=== PATIENT | male | born 1955 | race Caucasian/White ===

== ENCOUNTER 2018-04-25 00:43 | Emergency (ER) | payer SELFPAY ==
--- NOTE | 2018-04-25 03:36 | ED Physician Documentation ---
PD HPI ABD PAIN - Stated complaint Stated Complaint: CONSTIPATION - Chief complaint Chief Complaint: Abd Pain - History obtained from History obtained from: Patient - History of Present Illness Timing - onset: How many days ago (2) Timing - duration: Days (2) Timing - details: Gradual onset Quality: Cramping, Fullness/distended Location: All over / everywhere Recently seen: Not recently seen - Additional information Additional information: c/o constipation. no bm in 2 days, feels urge to defecate but unable to have BM. Denies h/o same. Review of Systems Constitutional: denies: Fever GI: reports: Abdominal Pain, Abdominal Swelling, Constipation. denies: Nausea, Vomiting, Diarrhea PD PAST MEDICAL HISTORY - Past Medical History Cardiovascular: None Respiratory: None Endocrine/Autoimmune: None GI: None : None HEENT: None Psych: None Musculoskeletal: None Derm: None - Past Surgical History Past Surgical History: No - Present Medications Home Medications: Ambulatory Orders Medication Instructions Recorded Confirmed No Known Home Medications [No 04/25/18 04/25/18 Known Home Medications] - Allergies Allergies/Adverse Reactions: Allergies Allergy/AdvReac Type Severity Reaction Status Date / Time No Known Drug Allergies Allergy Verified 04/25/18 01:00 - Social History Does the pt smoke?: No Smoking Status: Never smoker Does the pt drink ETOH?: No Does the pt have substance abuse?: No - Immunizations Immunizations are current?: Yes - POLST Patient has POLST: No PD ED PE NORMAL - Vitals Vital signs reviewed: Yes - General General: Alert and oriented X 3, No acute distress, Well developed/nourished - Abdomen Abdomen: Normal bowel sounds, Soft, Non tender, Non distended - Back Back: No CVA TTP - Derm Derm: Normal color, Warm and dry, No rash PD ED PE EXPANDED - Rectal Rectal: Normal Tone, Other (no stool in vault). No: Mass, Hemorrhoid Results - Vitals Vitals: Vital Signs - 24 hr 04/25/18 04:50 Heart Rate 62 Respiratory 18 Rate Blood Pressure 138/72 H O2 Saturation 98 Oxygen O2 Source Room air PD MEDICAL DECISION MAKING - ED course Complexity details: considered differential, d/w patient, d/w family ED course: no stool in vault on attempted disimpaction. At this time, the HPI and exam do not suggest an alternative diagnosis to constipation to the point of needing emergent testing or treatment; given magnesium citrate to take once he is home, and instructed to return if worse, and f/u with PMD if symptoms persist beyond next 24 hours - Sepsis Event Vital Signs: Vital Signs - 24 hr 04/25/18 04:50 Heart Rate 62 Respiratory 18 Rate Blood Pressure 138/72 H O2 Saturation 98 Oxygen O2 Source Room air Departure - Departure Disposition: 01 Home, Self Care Clinical Impression: Constipation Condition: Good Instructions: ED Constipation Comments: Drink half the bottle of the magnesium citrate provided (do this when you get home). If you do not have adequate results (large bowel movement with relief of urge to defecate) within 2 or 3 hours, drink the other half of the bottle. If this does not result in large bowel movement and resolution of your discomfort, you can also try Fleets enema, glycerin suppositories, Milk of Magnesia, colace , senna. Discharge Date/Time: 04/25/18 04:50
[2018-04-25] MEDS ORDERED: MAGNESIUM CITRATE 296 ML BOTTLE PO STA (04:38)
[2018-04-25 04:52] VITALS: BP 138/72
== END 2018-04-25 04:50 | disposition home or self-care (01) ==
LOC: ED 00:43
DX: K59.00 Constipation, unspecified (principal)
CPT/HCPCS: 99282; 99283; A9270

== ENCOUNTER 2025-07-27 08:48 | Observation (INO) ==
--- NOTE | 2025-07-27 08:44 | ED Physician Documentation ---
History of Present Illness Stated complaint Stated Complaint: STROKE Chief complaint Chief Complaint: Neuro History obtained from History obtained from: Patient, Family and EMS Additonal information Additional information: This is a reportedly otherwise healthy French-speaking gentleman who presents by ambulance for stroke symptoms. Sometime between 6 and 630 this morning he developed a left facial droop and slurred speech but no other deficits. He did not lose the ability to ambulate. He has no headache. No history of stroke. On no medications. He was hypertensive for EMS in the range of 199/90. Blood sugar prehospital was about 180. Meds/Allgy Home Medications Ambulatory Orders Medication Instructions Recorded Confirmed No Known Home Medications 04/25/1804/02 No Known Home Medications 07/27/2507/03 Allergies Allergies Allergy/AdvReac Type Severity Reaction Status Date / Time No Known Drug Allergies Allergy Unverified 07/27/25 08:45 PFSH Active Problems All Active Problems (Updated 07/27/25 @ 09:25 by José Miguel Barajas MD) Cerebrovascular accident (CVA) (Acute) Exam Exam Vital Signs: Vital Signs x48h Temp Pulse Resp BP Pulse Ox 07/27/25 09:11 36 C L 63 17 198/92 H 97 07/27/25 08:43 36.5 C 71 18 182/96 H 97 Constitutional normal general appearance and no apparent distress Eyes PERRL Respiratory breath sounds equal bilaterally, normal respiratory effort and clear to auscultation bilaterally Cardiovascular normal heart rate noted, regular rhythm noted and no murmur Gastrointestinal abdomen soft to palpation and nontender to palpation Results Vitals Vitals: Vital Signs - 24 hr 07/27/25 08:43 07/27/25 09:11 Temperature 36.5 C 36 C L Temperature Source Temporal Artery Scan Temporal Artery Scan Pulse Rate 71 63 Respiratory Rate 18 17 Blood Pressure 182/96 H 198/92 H O2 Saturation 97 97 O2 Source Room air Room air Pain Intensity 0 0 Oxygen O2 Source Room air EKG (time done) 0913: EKG releavant findings:: EKG personally interpreted by author of this note. Relevant findings are: Normal sinus rhythm with rate of 70, IVCD with LAD, LVH Labs Labs: Laboratory Tests 07/27/25 07/27/25 09:16 09:28 WBC 8.8 RBC 4.80 Hgb 14.0 Hct 41.0 L MCV 85.4 MCH 29.2 MCHC 34.1 RDW 12.9 Plt Count 185 MPV 10.2 Neut # (Auto) 6.3 Lymph # (Auto) 1.8 [place] # (Auto) 0.5 Eos # (Auto) 0.1 Baso # (Auto) 0.0 Absolute Nucleated RBC 0.00 Nucleated RBC % 0.0 Sodium 135 Potassium 3.9 Chloride 102 Carbon Dioxide 27 Anion Gap 6.0 BUN 12 Creatinine 0.8 Estimated GFR (MDRD) 96 Glucose 188 H POC Whole Bld Glucose 193 Calcium 9.0 Total Bilirubin 0.7 AST 15 ALT 16 Alkaline Phosphatase 90 Total Protein 7.4 Albumin 4.1 Globulin 3.3 Albumin/Globulin Ratio 1.2 Lipase 15 Rads (name of study) CT/CTA showing hypodensity in the right basal ganglia which could be a subacute stroke, otherwise negative: Relevant Findings:: Final report received and EMP independent interpretation of test (No ICH) PD Medical Decision Making ED course ED course: 70-year-old gentleman with strokelike symptoms seen briefly in the hallway on the way to CT. On my initial review of his noncontrast CT it looked normal to me around 9 AM and then I had further history and physical done with the aid of the [employer] interpreter. With that conversation patient said he actually started to develop numbness and tingling in the right leg at 1130 last night and then awoke with the other symptoms of dysarthria and left facial droop at 6 AM. Telestroke had been activated while he was in CT and we are awaiting their evaluation, but given the unclear time of onset and relatively mild symptomatology I suspect they will not recommend thrombolytics. Spoke with Dr. Medellin, telestroke neurologist at 9:15 AM. Given the unclear time of onset and sounding like he had symptoms last night he agrees that he does not recommend thrombolytics. Recommends admission for MRI and poststroke care. Dr. Medellin called me back after he reviewed the CT and the CT angiography. Recommends DAPT for 3 weeks and then aspirin only. Spoke with Dr. Okeefe for observation at 9:25 AM. Discharge Plan Discharge Patient Disposition: ED Place in Observation Condition: Stable Clinical Impression: Cerebrovascular accident (CVA) Qualifiers: CVA mechanism: unspecified Qualified Code(s): I63.9 - Cerebral infarction, unspecified Prescriptions: No Action No Known Home Medications No Known Home Medications Print Language: Romanian Stand Alone Forms: PCP List NIHSS Level of Consciousness Level of consciousness: (0) Alert, Keenly responsive LOC Questions: (0) Answers both Q's correct LOC Commands: (0) Performs both correctly Gaze Best Gaze: (0) Normal Visual Visual: (0) No loss Facial Palsy Facial Palsy: (1) Minor paralysis Motor Arms (both separate) Motor Arm (right): (0) No drift Motor Arm (left): (0) No drift Motor Legs (both separate) Motor Leg (right): (0) No drift Motor Leg (left): (0) No drift Limb Ataxia Limb Ataxia: (0) Absent Sensory Sensory: (0) Normal Best Language Best Language: (0) No aphasia Dysarthria Dysarthria: (1) Fwex-[id number] dysarthria Extinction and Inattention (formally neg Extinction and inattention: (0) No abnormality Total Score/Results Total Score/Result: 2
[2025-07-27 09:21] LABS: HCT - HEMATOCRIT 41.0 % (42.0-52.0); HGB - HEMOGLOBIN 14.0 g/dL (14.0-18.0); MEAN PLATELET VOLUME 10.2 fL (7.4-11.4); NRBC ABSOLUTE COUNT (AUTO) 0.00 x10^3/uL; NUCLEATED RED BLOOD CELLS AUTO 0.0 /100WBC; PLT - PLATELET COUNT 185 10^3/uL (130-450); RED CELL DISTRIBUTION WIDTH 12.9 % (12.0-15.0)
--- NOTE | 2025-07-27 09:35 | HISTORY & PHYSICAL EXAMINATION ---
Chief Complaint Chief Complaint Chief Complaint: Acute LUE numbness/tingling, facial droop, slurred speech History of Present Illness Admitted From Admitted From:: Home, arrived through EMS History Obtained From History obtained from: Patient, Son History of Present Illness HPI Comment/Other: Cuong Ramachandran is a 70-year-old male with a PMH of prediabetes who presents with acute numbness and tingling in the LUE, facial droop, and slurred speech found to have subacute infarction in the right thalamus, right basal ganglia, and right centrum semiovale. History is obtained from the patient, who requests that his son, Dillon, provides translation for Belarusian. Mr. Ramachandran's symptom onset began approximately 2300 on 07/26 when he was preparing to go to bed. He describes a cramping, tight sensation in the right lower extremity with gradual onset over 15 minutes. He went to bed and this sensation was gone by the time he woke up at 0630 the following morning 07/27. Shortly after, he went to the bathroom to shave, and noticed an absent sensation/numbness in his left lower face. He went to consult his who noticed he may have a facial droop, and notified their son who lives with them who quickly called EMS. Mr. Ramachandran also describes slurred speech which he noticed when speaking to his , and also reported by his and son. Currently, he states he feels "normal" and back to his baseline aside from continued mild dysarthria. He denies numbness, tingling, vision abnormalities, confusion, or word finding. He states he has never experienced such an episode before and is feeling quite anxious. His last annual physical was in 2023, he reports visiting [facility] in [place]. He also underwent cataract surgery a few weeks ago. He recalls being told he is prediabetic before. Otherwise, he is unaware of any prior medical history. Meds/Allgy Home Medications Ambulatory Orders Medication Instructions Recorded Confirmed No Known Home Medications 04/25/1804/02 No Known Home Medications 07/27/2507/03 Allergies Allergies Allergy/AdvReac Type Severity Reaction Status Date / Time No Known Drug Allergies Allergy Unverified 07/27/25 08:45 [facility] Active Problems All Active Problems (Updated 07/27/25 @ 14:29 by Reny Bucio) Swallowing difficulty (Acute) Hypertension (Chronic) ECG abnormality (Acute) Neurologic abnormality (Acute) Cerebrovascular accident (CVA) (Acute) Medical History Medical History (Updated 07/27/25 @ 14:29 by Reny Bucio) Prediabetes Social History Social History (Updated 07/27/25 @ 13:13 by Reny Bucio) Smoking Status: Former smoker If you are a former smoker, when did you quit? (Date/Year): Over 40 years ago, smoked for a few years as a teenager Number of Years Smoked: 5 How many cigarettes a day do you smoke? (20 cigarettes=1 Pk): 10 Second hand tobacco smoke exposure: No Do you dip or chew tobacco?: No Do you vape?: No Patient requests smoking cessation consult: No Initiate information on smoking cessation: No Living arrangement: At home Marital Status: Living Condition: With spouse/s.o. and With family Support Person: Yes Relationship Notes: Lives with and two sons. Living Situation Details: Lives in a [facility] with approximately 5-6 steps to get into the home. 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 He denies numbness, tingling, vision abnormalities, confusion, or word finding. He states he has never experienced such an episode before and is feeling quite anxious. Constitutional Reports: Fatigue (States at time he doesn't feel well-rested after sleeping); Denies: Fever, Chills, Weakness, Diaphoresis, Night sweats, Changes in appetite or eating habits, Poor appetite, Weight gain or Weight loss Eyes Reports: Other (Cataract surgery 3 weeks ago); Denies: Blurry vision, Field loss, Vision loss, Change in vision, Diplopia or Blind spots Ears, nose, mouth, and throat Reports: Other (Absent sensation in left lower face/mouth); Denies: Hearing loss, Change in hearing, Nasal congestion, Vertigo, Difficulty swallowing or Neck pain Cardiovascular Denies: Irregular heart rate, chest pain, palpitations, edema, swelling of feet/ankles, Syncope, lightheadedness, shortness of breath with exertion or shortness of breath when lying down Respiratory Reports: Snoring (Patient aware that he snores at night, son also reports hearing patient); Denies: Shortness of breath, Cough, Wheezing, SOB at rest or SOB with exertion Gastrointestinal Denies: Abdominal pain, Abdominal distention, Nausea, Vomiting, Poor appetite, Heartburn, Diarrhea, Constipation, Bloating, Difficulty swallowing, Change in bowel habits, Painful bowel movements, Change in stool character or Blood in stool Genitourinary Reports: Nighttime urination (Chronic, states he normally has to void 2-3 times at night); Denies: Painful urination, Flank pain, Incontinence, Urinary frequency, Urinary urgency, Blood in urine, Difficulty urinating, Difficulty starting urination, Urinary hesitancy or Urinary dribbling Musculoskeletal Denies: Back pain, Neck pain, Extremity pain, Extremity swelling, Joint pain, Limited range of motion, Stiffness, Muscle aches or Muscle weakness Integumentary/Breast Denies: Rash, Itching, Dryness, Redness, Sores or New lesion Neurological Reports: Slurred speech; Denies: Headache, General weakness, Weakness in extremities, Numbness in extremities, Abnormal gait, Lack of coordination, Dizziness, Vertigo, Confusion or Difficulty communicating thoughts Endocrine Reports: Fatigue (States at time he doesn't feel well-rested after sleeping); Denies: Excessive urination, Excessive thirst, Cold intolerance or Heat intolerance Hematologic/Lymphatic Denies: Easy bruising or Easy bleeding Allergic/Immunologic Denies: Wheezing Prior Level of Functionality: Independent in ADLs and transfers/ambulation. Does not use assistive device at baseline. Exam Exam Vital Signs: Vital Signs x48h Temp Pulse Pulse Pulse Resp BP BP 07/27/25 16:01 97.7 F 62 16 159/80 H 07/27/25 12:57 97.9 F 66 16 167/82 H 07/27/25 10:09 97.9 F 70 18 164/102 H 07/27/25 09:11 96.8 F L 63 17 198/92 H 07/27/25 08:43 97.7 F 71 18 182/96 H Pulse Ox 07/27/25 16:01 97 07/27/25 12:57 97 07/27/25 10:09 98 07/27/25 09:11 97 07/27/25 08:43 97 Constitutional normal general appearance, average body habitus and alert HENMT normocephalic, nasal mucous membranes normal and oral mucous membranes normal Eyes PERRL, EOMs intact bilaterally and no nystagmus Neck/C-Spine visual inspection normal and trachea midline Lymph no lymphadenopathy noted Chest inspection of chest normal Respiratory breath sounds equal bilaterally, normal respiratory effort, clear to auscultation bilaterally and no use of accessory muscles Cardiovascular normal heart rate noted, regular rhythm noted, no gallop, no rub, no murmur, no JVD, peripheral pulses 2+ throughout, no bruits noted, no additional abnormal heart sounds and no edema Gastrointestinal abdomen normal to inspection, abdomen soft to palpation, nontender to palpation, nondistended and normoactive bowel sounds Extremities normal to inspection and no deformity Neurology movement abnormality noted (Motor strength 4/5 in LUE), sensory deficit noted, speech abnormality noted (slurred) and coordination abnormality noted (Sfrhep-us-svlg slower on LUE. Ditw-jo-qyop normal.) (ejhcbw-tm-jyxf test abnormal) Decreased sensation to left lower face (below zygomatic process down to upper mandible). Motor strength LUE 4/5. LLE drift. Psychiatry mental status grossly normal, oriented x3, thought process normal, cooperative and memory normal Skin skin color normal, no rash, no lesions, no ecchymosis noted, no wounds, no lacerations, skin turgor normal, no jaundice, no petechiae, no mottling and nails normal Conclusion/Plan Problem List (1) Cerebrovascular accident (CVA): Plan: Patient presents with chief complaints of left lower face numbness, left facial droop, and slurred speech. He denies nausea, vomiting, dizziness, vertigo, or vision abnormalities. He denies weakness or sensory abnormalities aside from those stated. On physical exam he demonstrates diminished sensation to light touch in the left lower face, a left facial droop, mild dysarthria, slowed itgdxu-uu-khfu on LUE, and LLE drift. CBC, BMP within normal range, aside from elevated BG 188. CTH negative for bleed but notable for hypoattenuation within the right basal ganglia region, with MRI confirming subacute infarct in the right basal ganglia, right thalamus, and right centrum semiovale. This presentation is most consistent with acute CVA. Last known normal was 2330 07/26 and presented to ED 0900, not within 4.5 hour window for IV thrombolytics. As for the cause, I am concerned regarding undiagnosed hypertension, progression of diabetes (states he has been categorized with prediabetes in the past), or undiagnosed arrythmia. - MRI and CTH obtained - Continuous telemetry monitoring to assess for arrythmias - Neuro checks every 4 hours - NIHSS every shift - Transthoracic echo to assess for structural heart abnormalities - 12-lead ECG to assess for arrythmia - Lipid panel to assess for lipid disorders - BG ACHS to assess for hyperglycemia or undiagnosed diabetes - Permissive hypertension up to 220/120 for now to promote intracranial perfusion, will initiate slow treatment of BP tomorrow - Per Dr. Medellin with Neurology, initiate DAPT with Plavix and ASA for 21 days, then ASA only - PT/OT/FLAT LOCKER evaluations Qualifiers: CVA mechanism: unspecified Qualified Code(s): I63.9 - Cerebral infarction, unspecified (2) Swallowing difficulty: Plan: Patient denies difficulty swallowing subjectively and denies history of dysphagia or requiring special diet needs. However, on assessment I observed one incidence of drooling down the left side of his mouth while he was drinking water, and coughing once with voice quality change while eating his lunch. - FLAT LOCKER evaluation Qualifiers: Dysphagia type: unspecified Qualified Code(s): R13.10 - Dysphagia, unspecified (3) ECG abnormality: Plan: ECG performed in the ED demonstrates SR, and LVH with secondary repolarization abnormality. Telemetry strip demonstrates SR with 1st AVB and BBB. Most recent HR is 66. He denies chest pain, palpitations. On exam he has a regular rate and rhythm without murmurs. - Transthoracic echo to assess for structural abnormalities (4) Hypertension: Plan: Patient denies a history of hypertension, is not taking any home BP medications. In the ED his BP elevated as high as SBP 190s, on the floor his last BP is 167/82. He reports being anxious and nervous being in the hospital, denies pain. - Permissive hypertension up to 220/120 for now given acute CVA, will begin slow intitation of BP normalization tomorrow Qualifiers: Hypertension type: unspecified Qualified Code(s): I10 - Essential (primary) hypertension (5) Prediabetes: Plan: Patient states during his last annual visit, the doctor informed him he is prediabetic. He doesn't recall what blood tests were performed, unsure whether an HgbA1c was obtained. His BG readings here so far 07/27 are elevated 188, 193 respectively. - BG ACHS to monitor hyperglycemia - HgbA1c to assess for diabetes Plan He is being admitted with the Hospitalist service under observation status for further stroke work-up. Lines/Drains/Airways: Peripheral IV Fluids/Electrolytes/Nutrition: Regular diet DVT Prophylaxis: Will hold off on chemical prophylaxis today given concern for hemorraghic conversion of CVA, likely begin Enoxaparin 40mg SQ tomorrow Barriers to Discharge: Pending stroke work-up Lab Results Lab results reviewed: Yes 07/27/25 09:16 07/27/25 09:16 Diagnostic Imaging Results Diagnostic Imaging Results: positive Final report reviewed EKG Results EKG Interpreted Independently: Yes EKG Comparison: No prior EKG
[2025-07-27 09:36] LABS: ALT ALANINE AMINOTRANSFERASE 16.0 IU/L (10-60); AST ASPARTATE AMINOTRANSFERASE 15.0 IU/L (10-42); BUN - BLOOD UREA NITROGEN 12.0 mg/dL (6-20); CARBON DIOXIDE - CO2 27.0 mmol/L (21-32); CREATININE 0.8 mg/dL (0.6-1.3); GFR - MDRD 96.0 (>89)
[2025-07-27 09:46] LABS: INR 1.1 (0.8-1.2); PT - PROTHROMBIN TIME 12.6 secs (9.9-12.6)
--- NOTE | 2025-07-27 09:47 | CT Report ---
PROCEDURE: CT Angio Head/Neck INDICATIONS: cva sx CONTRAST:omni 300 80mL TECHNIQUE: After the administration of intravenous contrast, images were acquired from the aortic arch through the [place]. 3-dimensional bfyulfn-ctufuqrqj-pdpccaepkd (MIP) and volume rendering reformats were acquired of the central intracranial vasculature and neck separately. COMPARISON: None. FINDINGS: Image quality: Diagnostic. Cerebral CT Angiogram: Internal carotid arteries: No acute findings. Intracranial ICA are patent with no significant stenosis. No occlusion. No aneurysm. Anterior cerebral arteries: Unremarkable. No significant stenosis. No occlusion. No aneurysm. Middle cerebral arteries: Unremarkable. No significant stenosis. No occlusion. No aneurysm. Posterior cerebral arteries: Unremarkable. No significant stenosis. No occlusion. No aneurysm. Basilar artery: Unremarkable. No significant stenosis. No occlusion. No aneurysm. Vertebral arteries: Unremarkable as visualized. Dural venous sinuses: Unremarkable given phase of enhancement. Other: Arterial phase appearance of the brain parenchyma is unremarkable. Neck CT Angiogram: Internal carotid arteries: Unremarkable. No significant stenosis. No dissection or occlusion. Common carotid arteries: Unremarkable. No significant stenosis. No dissection or occlusion. External carotid arteries: Unremarkable. No occlusion. Vertebral arteries: Unremarkable. No significant stenosis. No dissection or occlusion. Aortic Arch and Mediastinum: Partially visualized aortic arch unremarkable without evidence of aneurysm. Origins of the great vessels unremarkable. Other: Arterial phase soft tissues of the neck and chest are unremarkable. IMPRESSION: No significant intracranial arterial abnormalities are seen. No hemodynamically significant stenosis can be seen within the arteries of the neck. The estimate of stenosis included in the report of the imaging study was calculated using the NASCET method Reviewed by: Jhon Patel MD on 07/27/2025 9:44 AM PDT Approved by: Jhon Patel MD on 07/27/2025 9:44 AM PDT Station ID: [id number]
--- NOTE | 2025-07-27 09:47 | CT Report ---
PROCEDURE: CT Head W/O Stroke Protocol INDICATIONS: Neuro deficit, acute, stroke suspected TECHNIQUE: Noncontrast angled axial sections acquired from the foramen magnum to the vertex, with coronal reformats. For radiation dose reduction, the following was used: automated exposure control, adjustment of mA and/or kV according to patient size. COMPARISON: None. FINDINGS: Image quality: Excellent. CSF spaces: Basal cisterns are patent. No extra-axial fluid collections. Ventricles are normal in size and shape. Brain: No midline shift. Small area of hypoattenuation within the right basal ganglia region (6/22). No intracranial mass effect or hemorrhage. Mosqueda-white matter interface is normal. Age-related global volume loss and chronic microvascular ischemic changes. Intracranial atherosclerotic vascular calci fications. Skull and face: Calvarium and visualized facial bones are intact, without suspicious lesions. Sinuses: Visualized sinuses and mastoids are clear. IMPRESSION: 1. No acute intracranial hemorrhage. 2. Small area of hypoattenuation within the right basal ganglia region, differential includes subacute infarct or chronic small vessel ischemic change. Recommend MRI for further evaluation. Findings were discussed with ordering provider on 07/27/2025 at 9:35 a.m. This study fulfills neurological imaging criteria for inclusion or exclusion of acute stroke therapies based on available published neurological imaging guidelines. Reviewed by: Jhon Patel MD on 07/27/2025 9:43 AM PDT Approved by: Jhon Patel MD on 07/27/2025 9:43 AM PDT Station ID: [id number]
[2025-07-27] MEDS ORDERED: SODIUM CHLORIDE FLUSH 0.9% 10 ML SYRINGE IVP PRN (10:07)
[2025-07-27] MEDS ORDERED: ONDANSETRON ODT 4 MG TABLET TL PRN (10:07)
--- NOTE | 2025-07-27 11:05 | PHARMACY PROGRESS NOTE ---
Best Possible Medication History Admit Date and Time: 07/27/25 [id number] Home Medications Medication Instructions Recorded Confirmed Type No Known Home Medications 04/25/1804/02 History No Known Home Medications 07/27/2507/03 History Processed by: Nursing Medications reviewed in ED?: Yes Medication History completed: Yes Patient Interview: Completed [facility] Statement: As the person ultimately responsible for medication therapy, providers are able to order a medication from an existing home medication list in [facility] via the "Reconcile Routine" prior to Confirmation of that medication by user support analyst. Such practice is discouraged except when the physician, in their clinical judgment, deems that a medical need exists for a medication without regard to previous use.
[2025-07-27] MEDS: CLOPIDOGREL 75 MG TABLET PO STA (12:19)
[2025-07-27] MEDS: ASPIRIN CHEW 81 MG TABLET PO STA (12:19)
--- NOTE | 2025-07-27 12:37 | MRI Report ---
PROCEDURE: MRI Brain WO INDICATIONS: acute cva TECHNIQUE: Multisequence MRI of the brain was performed without intravenous contrast. COMPARISON: Correlation is made with the accompanying imaging. FINDINGS: Image quality: Diagnostic. CSF Spaces: Basal cisterns are patent. No extra-axial fluid collections. Ventricles are normal in size and shape. Brain: Abnormal diffusion signal can be seen involving the right thalamus, right basal ganglia, and right centrum semiovale, as seen on series 6 images 36 through 39. Associated dark signal can be seen on the ADC maps. There is developing STIR signal seen within these regions. Age-appropriate brain parenchymal volume loss and chronic small vessel ischemic change can be seen. No intracranial mass effect or hemorrhage. Mosqueda/white matter interface is normal. Brainstem appears normal. No chronic ischemic insults. Normal intravascular flow voids are present. Skull and face: Calvarium has normal marrow signal. Orbits appear normal. Incidental note is made of bilateral lens replacements. Sinuses: Sinuses and mastoids are clear. IMPRESSION: Subacute infarction seen involving the right thalamus, right basal ganglia, and right centrum semiovale. Reviewed by: Danny Ivan MD on 07/27/2025 11:34 AM CARLOS Approved by: Danny Ivan MD on 07/27/2025 11:34 AM CARLOS Station ID: [id number]
[2025-07-27 14:55] LABS: CHOL/HDL RATIO 5.6 (<5.0); LDL/HDL RATIO 3.8 (<3.6); VLDL CHOLESTEROL 23 mg/dL
[2025-07-27] MEDS: SODIUM CHLORIDE FLUSH 0.9% 10 ML SYRINGE IVP SCH (16:00)
[2025-07-27 20:31] LABS: ESTIMATED AVERAGE GLUCOSE 189 mg/dL (70-100); HEMOGLOBIN A1c% 8.2 % (4.27-6.07)
[2025-07-27] MEDS: ATORVASTATIN 40 MG TABLET PO SCH (20:36)
[2025-07-28] MEDS: ASPIRIN EC 81 MG TABLET PO SCH (08:13)
[2025-07-28] MEDS: CLOPIDOGREL 75 MG TABLET PO SCH (08:13)
[2025-07-28] MEDS: ACETAMINOPHEN 325 MG TABLET PO PRN (08:13)
--- NOTE | 2025-07-28 10:09 | PROVIDER PROGRESS NOTE ---
Subjective Prog Note Date Prog Note Date: 07/28/25 Subjective Pt reports feeling: No change Subjective: Cuong Ramachandran is a 70-year-old male with PMH of prediabetes who initially presented with acute numbness and tingling of the LUE, left facial droop, and dysarthria found to have subacute infarction in the right thalamus, right basal ganglia, and right centrum semiovale. Today, Mr. Ramachandran is feeling overwhelmed and anxious, is tearful during the conversation. He is accompanied by his son during rounds today, who is supportive and assists in consoling patient. His sons reports he has been ambulating to the bathroom independently. Mr. Ramachandran continues to endorse absent sensation in the left lower face. He denies any neurological changes overnight. Current Medications Current Medications Current Medications: Current Medications Generic Name Dose Route Start Last Admin Trade Name Freq PRN Reason Stop Dose Admin Acetaminophen 650 mg 07/27/25 10:07 07/28/25 08:13 Acetaminophen 325 Mg Tablet PO 650 mg Q4HR PRN Administration Pain 1 to 4, or Fever Aspirin 81 mg 07/28/25 09:00 07/28/25 08:13 Aspirin Ec 81 Mg Tablet PO 81 mg DAILY DEJON Administration Atorvastatin Calcium 40 mg 07/27/25 21:00 07/27/25 20:36 Atorvastatin 40 Mg Tablet PO 40 mg QPM DEJON Administration Clopidogrel Bisulfate 75 mg 07/28/25 09:00 07/28/25 08:13 Clopidogrel 75 Mg Tablet PO 75 mg DAILY DEJON Administration Ondansetron HCl 4 mg 07/27/25 10:07 Ondansetron Odt 4 Mg Tablet TL Q6HR PRN Nausea / Vomiting Sodium Chloride 10 ml 07/27/25 10:07 Sodium Chloride Flush 0.9% 10 Ml Syringe IVP PRN PRN NEEDED PER PROVIDER ORDERS Sodium Chloride 10 ml 07/27/25 17:00 07/28/25 08:13 Sodium Chloride Flush 0.9% 10 Ml Syringe IVP 10 ml 0100,0900,1700 DEJON Administration Objective Vital Signs/Intake & Output Reviewed Vital Signs: Yes Vital Signs: Vital Signs x48h Temp Pulse Resp BP Pulse Ox 07/28/25 08:29 18 182/97 H 97 07/28/25 08:00 36.5 C 70 18 177/87 H 96 07/28/25 04:25 36.5 C 62 16 180/83 H 96 07/28/25 04:15 36.6 C 61 18 158/75 H 96 Intake & Output: Intake & Output 07/25/25 07/26/25 07/27/25 07/28/25 23:59 23:59 23:59 23:59 Intake Total 120 / 120 Balance 120 / 120 Weight (kg) 88.5 kg 88 kg Objective General Appearance: positive No acute distress, Alert and Anxious (Tearful, feeling overwhelmed by hospitalization) Eyes Bilateral: positive Normal inspection, PERRL and EOMI ENT: positive ENT inspection nml and Other (Tongue deviation to the left) Neck: positive Nml inspection, No JVD and Trachea midline Respiratory: positive Chest non-tender, No respiratory distress and Breath sounds nml Cardiovascular: positive Regular rate & rhythm and No murmur Peripheral Pulses: 2+: Radial (R), 2+: Radial (L), 2+: Dorsalis pedis (R), 2+: Dorsalis pedis (L), 2+: Posterior tibialis (R) and 2+: Posterior tibialis (L) Abdomen: positive Non-tender, Nml bowel sounds and No distention Back: positive Nml inspection Skin: positive Color nml, No rash, Warm and Dry Extremities: positive Non-tender and No pedal edema Neurologic/Psychiatric: positive Oriented x3, Weakness (LUE sole trimmer strength 4/5), Sensory loss (To left lower face), Facial droop (Left facial droop) and Slurred/abnml speech (Patient reports he feels like he is still slurring words intermittently, also noted by family, but appears improved from yesterday); negative Motor nml (LUE motor strength 4/5, slow [id number]; [id number]-[id number] normal) or Sensation nml (Absent sensation to below left zygomatic process down to upper mandible) Lab Results 07/27/25 09:16 07/27/25 09:16 Other Labs: Lab Results x24hrs 07/27/25 Range/Units 09:26 Estimat Average Glucose 189 H (70-100) mg/dL Hemoglobin A1c % 8.2 H (4.27-6.07) % Triglycerides 116 mg/dL Cholesterol 173 ( - 200) mg/dL LDL Cholesterol, Calc 119 ( - 129) mg/dL VLDL Cholesterol 23 mg/dL HDL Cholesterol 31 L (60 - ) mg/dL LDL/HDL Ratio 3.8 (<3.6) Cholesterol/HDL Ratio 5.6 (<5.0) Diagnostic Imaging Diagnostic Imaging Results: positive Final report reviewed Assessment/Plan Problem List (1) Cerebrovascular accident (CVA): Impression: Patient presents with chief complaints of left lower face numbness, left facial droop, and slurred speech. He denies nausea, vomiting, dizziness, vertigo, or vision abnormalities. He denies weakness or sensory abnormalities aside from those stated. On physical exam he demonstrates diminished sensation to light touch in the left lower face, a left facial droop, mild dysarthria, slowed trafsb-[id number]-pdgp on LUE, and LLE drift. CBC, BMP within normal range, aside from elevated BG 188. Lipid panel unremarkable. CTH negative for bleed but notable for hypoattenuation within the right basal ganglia region, with MRI confirming subacute infarct in the right basal ganglia, right thalamus, and right centrum semiovale. This presentation is most consistent with acute CVA. Last known normal was 2330 07/26 and presented to ED 0900, not within 4.5 hour window for IV thrombolytics. As for the cause, I am concerned regarding undiagnosed hypertension, progression of diabetes (states he has been categorized with prediabetes in the past), or undiagnosed arrythmia. - MRI and CTH obtained - Continuous telemetry monitoring to assess for arrythmias - Neurological checks every 4 hours - NIHSS every shift - Transthoracic echo to assess for structural heart abnormalities - 12-lead ECG to assess for arrythmia; complete as of 07/27, see below - BG ACHS to assess for hyperglycemia or undiagnosed diabetes - Was on permissive hypertension for 24 hours to prevent hemorrhagic conversion, SBP elevated up to 180s overnight 07/28, will initiate slow normalization of BP at this time; start Losartan 25mg PO once daily - Per Dr. Medellin with Neurology, initiate DAPT with Plavix and ASA for 21 days, then ASA only - Start Atorvastatin 40mg PO daily - PT/OT/DIRECTOR OF MARKET INTELLIGENCE evaluations A critical barrier when considering discharge disposition is patient is currently self-pay and is not enrolled in Medicare. This will be important moving forward when considering therapy recommendations should there be indications for higher level of care or outpatient therapy. At this time it appears the family is fully amenable to caring for the patient at home. Qualifiers: CVA mechanism: unspecified Qualified Code(s): I63.9 - Cerebral infarction, unspecified (2) Swallowing difficulty: Impression: Patient denies difficulty swallowing subjectively and denies history of dysphagia or requiring special diet needs. However, on assessment I observed one incidence of drooling down the left side of his mouth while he was drinking water, and coughing once with voice quality change while eating his lunch. He has a left facial droop and mild tongue deviation. Patient also notes biting his cheek while eating. I suspect this is a manifestation of his stroke. - DIRECTOR OF MARKET INTELLIGENCE evaluation Qualifiers: Dysphagia type: unspecified Qualified Code(s): R13.10 - Dysphagia, unspecified (3) ECG abnormality: Impression: ECG performed in the ED demonstrates SR, and LVH with secondary repolarization abnormality. Telemetry strips demonstrates SR with 1st AVB and BBB. HR 60s-70s so far. He denies chest pain, palpitations. On exam he has a regular rate and rhythm without murmurs. - Transthoracic echo to assess for structural abnormalities - Continuous telemetry (4) Hypertension: Impression: Patient denies a history of hypertension, is not taking any home BP medications. He reports being anxious and nervous being in the hospital, denies pain. He has been maintained on permissive hypertension for 24 hours, overnight 07/28 his SBP 170s-180s. - Start Losartan 25mg PO daily Qualifiers: Hypertension type: unspecified Qualified Code(s): I10 - Essential (primary) hypertension (5) Type 2 diabetes mellitus: Impression: Patient states during his last annual physical in 2023 at [facility] in [place], the doctor informed him he is prediabetic. He doesn't recall what blood tests were performed, unsure whether an HgbA1c was obtained. BG readings on 07/27 were elevated up to 193. HgbA1c is 8.2, meeting criteria for diabetes. This is a new diagnosis for the patient. - BG ACHS to monitor hyperglycemia - Initiate counselling for lifestyle modications, including physical activity as tolerated, carbohydrate controlled diet - Reccomend outpatient follow-up for diabetes management, will require initiation of oral diabetic agent - While inpatient, initiate insulin regimen according to the following: Basal: Insulin glargine 10 units Prandial: Insulin lispro 4 units Low dose correctional insulin Qualifiers: Diabetes mellitus complication status: with hyperglycemia Diabetes mellitus senior care insulin use: without senior care use Qualified Code(s): E11.65 - Type 2 diabetes mellitus with hyperglycemia
[2025-07-28] MEDS: INSULIN LISPRO 300 UNIT/3 ML PEN SUBQ SCH (21:16)
[2025-07-28] MEDS: INSULIN GLARGINE-YFGN 300 UNIT/3 ML PEN SUBQ SCH (21:17)
[2025-07-28] MEDS: LOSARTAN 50 MG TABLET PO SCH (21:24)
[2025-07-29 03:43] VITALS: TEMP 97.9
[2025-07-29] MEDS: INSULIN LISPRO 300 UNIT/3 ML PEN SUBQ SCH (08:26)
--- NOTE | 2025-07-29 11:12 | Discharge Summary ---
Discharge Summary Admit Date: 07/27/25 Discharge Date: 07/29/25 Discharging Provider: Dr. Kris Okeefe Primary Care Provider: Jj Nur in [place] Code Status: Attempt Resuscitation Discharge Facility Name: Home DIAGNOSES Discharge Diagnoses with Status of Each Condition: Acute CVAMRI shows subacute infarct in the right basal ganglia, right thalamus and right centrum semiovale. When he presented, he was outside the window for TNK/tPA. Completed permissive hypertension while here. Echo has been completed, read remains pending. Started on statin, aspirin, Plavix. Will continue DAPT for 21 days, then transition to just aspirin. No arrhythmias noted on telemetry here. Needs follow-up with neurology. Dysphagiapatient has a left-sided facial droop, and is having some difficulty swallowing. Needs extensive outpatient speech therapy. Advised to follow-up with primary care provider for this referral. Hypertensioncontinue losartan. Likely will need up titration in the outpatient setting. Type 2 diabetes mellitusstarted on metformin 500mg twice a day. Continue carb controlled diet. Needs close follow-up for up titration of diabetic medications. 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 History is obtained from the patient, who requests that his son, Dillon, provides translation for Malian. Mr. Ramachandran's symptom onset began approximately 2300 on 07/26 when he was preparing to go to bed. He describes a cramping, tight sensation in the right lower extremity with gradual onset over 15 minutes. He went to bed and this sensation was gone by the time he woke up at 0630 the following morning 07/27. Shortly after, he went to the bathroom to shave, and noticed an absent sensation/numbness in his left lower face. He went to consult his who noticed he may have a facial droop, and notified their son who lives with them who quickly called EMS. Mr. Ramachandran also describes slurred speech which he noticed when speaking to his , and also reported by his and son. Currently, he states he feels "normal" and back to his baseline aside from continued mild dysarthria. He denies numbness, tingling, vision abnormalities, confusion, or word finding. He states he has never experienced such an episode before and is feeling quite anxious. His last annual physical was in 2023, he reports visiting [facility] in [place]. He also underwent cataract surgery a few weeks ago. He recalls being told he is prediabetic before. Otherwise, he is unaware of any prior medical history. CONSULTS | PROCEDURES Consultations: Teleneurology, physical therapy Procedures: Brain MRI9/26subacute infarction involving the right thalamus, right basal ganglia, right centrum semiovale. CTAnegative. CT headsmall area of hypoattenuation within the right basal ganglia. HOSPITAL COURSE Hospital Course: Patient is a 70-year-old male with a history of prediabetes who presented with left-sided facial droop, decreased sensation of the left face, as well as decreased left upper extremity strength. Code stroke was called, but his last known normal was outside the tPA window. As such, they recommended 3 weeks of dual antiplatelet therapy, followed by aspirin monotherapy. He was started on a statin. MRI did reveal a subacute infarct involving the right thalamus, right basal ganglia, right centrum semiovale. Echo was completed, the read remains pending. He was found to be a new diabetic, and had elevated blood pressures during his stay here. He was initiated on losartan as well as metformin. Patient was advised to follow-up closely with his primary care provider. Medication voucher was provided as patient does not have insurance. Physical therapy worked with the patient, and anticipate speech therapy and occupational therapy needs which can be completed as an outpatient. Patient was deemed stable for discharge home with close follow-up, and good family support. ALLERGIES Allergies Allergy/AdvReac Type Severity Reaction Status Date / Time No Known Drug Allergies Allergy Unverified 07/27/25 08:45 MEDICATIONS Ambulatory Orders Medication Instructions Recorded Confirmed No Known Home Medications 04/25/1804/02 aspirin 81 mg tablet,delayed 81 mg PO DAILY #30 tabs 0 07/29/25 release atorvastatin 40 mg tablet 40 mg PO QPM #30 tabs clopidogrel 75 mg tablet 75 mg PO DAILY #18 tabs 07/03 06/25 losartan 25 mg tablet 25 mg PO DAILY #30 tabs 09/2 8/25 metformin 500 mg tablet 500 mg PO BID #60 tabs 07/29 PHYSICAL EXAM AT DISCHARGE Vital Signs: Vital Signs x48h Temp Pulse Resp BP Pulse Ox 07/29/25 14:15 71 16 198/95 H 97 07/29/25 09:00 97.9 F 79 20 149/93 H 95 General Appearance: positive No acute distress, Alert and Anxious Eyes Bilateral: positive Normal inspection, PERRL and EOMI ENT: positive ENT inspection nml and Other (Tongue deviation to the left) Neck: positive Nml inspection, No JVD and Trachea midline Respiratory: positive Chest non-tender, No respiratory distress and Breath sounds nml Cardiovascular: positive Regular rate & rhythm and No murmur Peripheral Pulses: 2+: Radial (R), 2+: Radial (L), 2+: Dorsalis pedis (R), 2+: Dorsalis pedis (L), 2+: Posterior tibialis (R) and 2+: Posterior tibialis (L) Abdomen: positive Non-tender, Nml bowel sounds and No distention Back: positive Nml inspection Skin: positive Color nml, No rash, Warm and Dry Extremities: positive Non-tender and No pedal edema Neurologic/Psychiatric: positive Oriented x3, Weakness (LUE center machine set up operator strength 4/5), Sensory loss (To left lower face), Facial droop (Left facial droop) and Slurred/abnml speech (Patient reports he feels like he is still slurring words intermittently, also noted by family, but appears improved from yesterday); negative Motor nml (LUE motor strength 4/5, slow vxzoio-ci-bppi; eczj-oy-jjha normal) or Sensation nml (Absent sensation to below left zygomatic process down to upper mandible) LABS 07/27/25 09:16 07/27/25 09:16 FOLLOW UP Follow Up: Follow up with PCP. Follow up with neurology. TIME SPENT Time Spent in Discharge (Minutes): 35 Discharge Plan Discharge Patient Disposition: 01 Home, Self Care Condition: Stable Prescriptions: New aspirin 81 mg Tablet,Delayed Release (Dr/Ec) 81 mg PO DAILY Qty: 30 0RF atorvastatin 40 mg Tablet 40 mg PO QPM Qty: 30 0RF clopidogrel 75 mg Tablet 75 mg PO DAILY Qty: 18 0RF metformin 500 mg tablet 500 mg PO BID Qty: 60 0RF losartan 25 mg tablet 25 mg PO DAILY Qty: 30 0RF No Action No Known Home Medications Diet: Diabetic Interventions: Belongings Inventory Last Done: 07/28/25 00:52 Health Concerns: You came in for left-sided weakness, left facial droop, and some difficulty with swallowing. You were found to have a stroke. Your MRI of the brain shows changes in the right side of your brain caused by the stroke, which correspond to your left-sided weakness. You worked with physical therapy, and they thought you did great. You will not need a walker or cane when you are discharged. However, you will require occupational therapy and speech therapy. We talked about how in order to receive these services, you will need to get referral from your primary care provider. For the stroke, you will need to continue aspirin 81 mg daily, indefinitely. You will also require Plavix, another antiplatelet drug that helps thin your blood for 18 more days, for total duration of 3 weeks. Additionally, as we talked about, you will be started on the cholesterol pill, which you will take nightly, this is your atorvastatin 40 mg. You should follow up with neurology as well. While you were here, you were found to have elevated blood pressure. High blood pressure can contribute to strokes. As such, it is important that we take good care of this. We will start you on a blood pressure medication called losartan. If you can, please acquire a blood pressure cuff and check your blood pressure daily. When you are doing this, make sure your arm is heart level, and that your feet are flat on the ground. Please record these blood pressures, and take them in when you see your primary care provider next. Finally, your diabetes numbers were found to be elevated. Prediabetic range of an A1c measurement diabetes is between 5.9 and 6.4. Yours is now 8.2%. This effectively puts you in the diabetic range. As we talked about, you will not need insulin on discharge. I am starting you on metformin 500 mg twice a day. This can be increased in the outpatient setting. However, you can have some side effects like nausea, vomiting, diarrhea, so we like to do this slowly. Please continue to work on your diet; I have attached some handouts. Please continue to exercise as well. I know that this is a lot of information, and a lot of things have happened in the last few days that may have come as a surprise to you. I am very glad that you have such great family support to help you get through this. For your medications, I have sent them to the [facility] pharmacy here in [place]. This is because, we can provide a pharmacy voucher where you can filler picker these medications for free. Please pick them up in the next 2 days for this to be eligible. They are closed today, on Wednesday, so you should be able to pick them up tomorrow morning. We are glad you are feeling better. Thank you for letting to take care of you. Print Language: Malian/Castilian Patient Instructions: Diabetes: Newly Diagnosed, Diabetes: Shopping & Making Meals, Diabetes: The Benefits of Exercise, Diabetes Serving Portion Sizes, ED Stroke (Completed) Stand Alone Forms: PCP List Vitals documented within 30 minutes of discharge?: Yes (vitals did not pull through)
--- NOTE | 2025-07-29 13:03 | PT Plan of Care ---
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 Please see chart for complete medical hx. The pt was received resting comfortably sitting up in a recliner while visiting with family. He presented today with good B LE strength and ROM; intact light touch, localization to touch, and proprioception to all 4 extremities; good B LE coordination grossly; apparent L sided facial droop with an inability to close his mouth; and gross weakness of L UE. He was A&O x4, able to recognize all objects and correctly describe their proper use, and denied any visual changes. At this time his mobility appears largely intact as he is Ind and safe with all transfers and ambulation without requiring assist or an AD. Due to the L UE and facial weakness he would benefit from assessment by OT and PANEL ASSEMBLER to address ADL and speaking/eating deficits. At this time recommend continued skilled PT intervention while in the acute setting and DC home with OP OT and PANEL ASSEMBLER services for further rehab once pt medically stable. This plan was discussed with the pt, his , and his daughter, they were all in agreement with this. Translation was performed over the phone by the pt's daughter. At the end of the session the pt was sitting up in a chair with call light in reach, chair alarm in place and on, and all needs met while TECHNICAL SUPPORT ASSISTANT assessing his blood glucose and pt about to eat lunch. updated on pt's status and DC rec. PATIENT/FAMILY GOALS Patient/Family Goals: To be able to keep food in my mouth and not drool GOALS Improve gait ability to:: Ind Increase distance walked to (in feet):: 500 PLAN Frequency: 1-2x/day Duration: Until goals are met DISCHARGE RECOMMENDATIONS Discharge Location: Previous Living Situation Support/Services Needed: OP OT and PANEL ASSEMBLER Other Discharge Equipment: no DME needs for mobility Transport Needs at Discharge: Personal vehicle
[2025-07-29 14:28] VITALS: BP 198/95; O2SAT 97
--- NOTE | 2025-07-29 15:58 | ECHO Report ---
Version: 1 Study ID: [id number] Adult Echocardiogram Report Name: TANJA TANG Study Date: 07/27/2025, 1: 04 PM BP: 164 / 102 mmHg Patient Location: ^[id number] HR: 60 bpm : 1955 (MM/DD/YYYY) Gender: Male Height: 75 in Age: 70 Years Weight: 195.109 lb BSA: 2.17 m² Reason For Study: rule out PFO History: Saline contrast study ordered. Interpretation Summary There is moderate asymmetric septal hypertrophy. The visual left ventricular ejection fraction is estimated at 60 to 65%. Global left ventricular systolic function is normal. The right ventricle is normal size. TAPSE is consistent with decreased right ventricular function. Saline contrast study (Bubble Study) negative for Atrial septal shunt) Left Ventricle: The left ventricle is normal in size. There is moderate asymmetric septal hypertrophy. No thrombus seen in the left ventricle. The visual left ventricular ejection fraction is estimated at 60 to 65%. Global left ventricular systolic function is normal. Assessment of left ventricular filling pressure is indeterminate. Right Ventricle: The right ventricle is normal size. TAPSE is consistent with decreased right ventricular function. The tricuspid annular plane systolic excursion (TAPSE) measurement is 1.4 cm. Aortic Valve: The aortic valve is mildly thickened. The aortic valve is trileaflet. No hemodynamically significant valvular aortic stenosis. Mild aortic regurgitation is present. Mitral Valve: The mitral valve leaflets are structurally normal with normal motion. No evidence of mitral stenosis is seen. There is trace mitral regurgitation. Tricuspid Valve: The tricuspid valve is structurally normal. There is no tricuspid stenosis. Trace tricuspid regurgitation present. Pulmonic Valve: The pulmonic valve is normal in structure and function. There is no pulmonic valvular stenosis. Trace pulmonic valvular regurgitation is present. Left Atrium: The left atrial size is normal. Right Atrium: Right atrial size is normal. The inferior vena cava is not well visualized. The central venous pressure cannot be estimated on this study. Atrial Septum: The interatrial septum appears normal, without evidence of shunt by 2D imaging and color Doppler. Saline contrast study (Bubble Study) negative for Atrial septal shunt). Aorta: The ascending aorta is normal in size. The aortic arch is not well seen. The sinuses of Valsalva are normal in size. Pulmonary Artery: The pulmonary artery is normal size. The right ventricular systolic pressure is 24mmHg. Pericardium/Pleural Space: There is no pericardial effusion. Left Ventricle IVSd: 1.40 cm LVIDd: 4.3 cm LVPWd: 1.13 cm LVIDs: 2.7 cm ESV(sp4-el): 41.1 ml Right Ventricle TAPSE: 1.41 cm RV S Norman: 10.8 cm/sec Atria LA dimension: 4.2 cm LAV(MOD-sp4): 50.1 ml LAV(MOD-sp2): 49.2 ml Diastolic Function MV dec time: 0.31 sec MV E max norman: 73.8 cm/sec MV A max norman: 108.3 cm/sec Aortic Valve LVOT diam: 2.01 cm LV V1 mean P.6 mmHg LV V1 mean: 73.9 cm/sec LV V1 VTI: 21.4 cm Ao V2 VTI: 27.5 cm Ao mean P.1 mmHg Ao V2 mean: 95.7 cm/sec LV V1 max: 109.0 cm/sec LV V1 max P.8 mmHg Ao max P.3 mmHg Ao V2 max: 135.1 cm/sec Mitral Valve MV max P.6 mmHg MV V2 max: 107.0 cm/sec MV mean P.76 mmHg MV V2 mean: 61.6 cm/sec MV V2 VTI: 22.9 cm Tricuspid Valve TR max P.2 mmHg TR max norman: 230.5 cm/sec TV max P.2 mmHg Aorta Ao root diam: 3.1 cm MMode/2D Measurements & Calculations Ao root diam: 3.1 cm BMI: 24.4 kilograms/m² BSA([facility]): 2.17 m² ESV(sp4-el): 41.1 ml IVSd: 1.40 cm LA A4C-A/L: 13.4 cm² LA dimension: 4.2 cm LA ESV-A/L: 33.6 ml LA Vol Index: 31.2 ml/m² LAV(MOD-sp2): 49.2 ml LAV(MOD-sp4): 50.1 ml LVIDd: 4.3 cm LVIDs: 2.7 cm LVOT diam: 2.01 cm LVPWd: 1.13 cm RA A4Cs: 10.7 cm² TAPSE: 1.41 cm Doppler Measurements & Calculations Ao max P.3 mmHg Ao mean P.1 mmHg Ao V2 max: 135.1 cm/sec Ao V2 mean: 95.7 cm/sec Ao V2 VTI: 27.5 cm Lat E/e': 9.5 LV V1 max: 109.0 cm/sec LV V1 max P.8 mmHg LV V1 mean: 73.9 cm/sec LV V1 mean P.6 mmHg LV V1 VTI: 21.4 cm Med E/e': 12.7 MV A max norman: 108.3 cm/sec MV dec time: 0.31 sec MV DVI-pr: 0.68 MV E max norman: 73.8 cm/sec MV max P.6 mmHg MV mean P.76 mmHg MV V2 max: 107.0 cm/sec MV V2 mean: 61.6 cm/sec MV V2 VTI: 22.9 cm PA max P.9 mmHg PA V2 max: 121.0 cm/sec RV S Norman: 10.8 cm/sec TR max P.2 mmHg TR max norman: 230.5 cm/sec TV max P.2 mmHg Other Measurements & Calculations Ao root area: 7.6 cm² GAYLA(I,D): 2.46 cm² GAYLA(V,D): 2.6 cm² EDV(Teich): 82.2 ml EF(sp-el): 50.0 % EF(Teich): 65.9 % ESV(Teich): 28.0 ml FS: 36.0 % LVOT area: 3.2 cm² MV E/A: 0.68 MVA(VTI): 3.0 cm² SV(LVOT): 67.7 ml MD Bia Urbano 07/29/2025, 3: 57 PM Ordering Physician: Kris Okeefe Referring Physician: José Miguel Barajas Performed By: USJorge
== END 2025-07-29 14:25 | disposition home or self-care (01) ==
LOC: EDBD → MS2 08:48 → ED 08:48 → MS2 09:55
PROVIDERS: ADMIT Internal Medicine; ATTEND Internal Medicine